=== PATIENT | female | born 1950 | race Caucasian/White ===

== ENCOUNTER 2018-11-09 20:10 | Inpatient (IN) | payer MEDICARE ==
[~2018-11-09] VITALS: Ht 162.6 cm; Wt 51.9 kg
[2018-11-09 21:30] LABS: BASOPHILS # (AUTO) 0.1 (0.0-0.1); BASOPHILS % 0.3 % (0.0-1.0); EOSINOPHILS # (AUTO) 0.2 (0.0-0.4); EOSINOPHILS % 0.7 % (0.0-6.0); HEMATOCRIT 32.2 % (34.2-44.1); HEMOGLOBIN 11.2 g/dL (12.0-16.0); LYMPHOCYTES # (AUTO) 1.9 (1.0-3.2); LYMPHOCYTES % 8.5 % (18.0-39.1); MEAN CORPUSCULAR HEMOGLOBIN 32.3 pg (28-32); MEAN CORPUSCULAR HGB CONC 34.8 g/dL (31-35); MEAN CORPUSCULAR VOLUME 92.8 fL (81-99); MONOCYTES # (AUTO) 2.7 (0.2-0.8); MONOCYTES % 12.1 % (4.4-11.3); NEUTROPHILS # (AUTO) 16.8 (2.1-6.9); NEUTROPHILS % 76.9 % (38.7-80.0); PLATELET COUNT 272 x10e3/uL (140-360); RED BLOOD COUNT 3.47 x10e6/uL (3.6-5.1); RED CELL DISTRIBUTION WIDTH 12.7 % (11.7-14.4)
[2018-11-09 21:41] LABS: BACTERIA,URINE FEW /HPF; BILIRUBIN,URINE NEGATIVE (NEGATIVE); CLARITY,URINE CLEAR (CLEAR); COLOR,URINE YELLOW (YELLOW); KETONES,URINE NEGATIVE (NEGATIVE); LEUKOCYTE ESTERASE ,URINE NEGATIVE (NEGATIVE); NITRITE,URINE NEGATIVE (NEGATIVE); PROTEIN,URINE DIPSTICK NEGATIVE (NEGATIVE); URINE UROBILINOGEN 0.2 mg/dL (0.2 - 1); WBC,URINE (MAN) 0-5 /HPF (0-5)
[2018-11-09 21:42] LABS: EPITHELIAL CELLS,URINE FEW /LPF
[2018-11-09 21:49] LABS: ALANINE AMINOTRANSFERASE 8 IU/L (0-55); ALBUMIN 3.3 g/dL (3.5-5.0); ALBUMIN/GLOBULIN RATIO 0.8 (0.8-2.0); ALKALINE PHOSPHATASE 120 IU/L (40-150); AMYLASE 23 U/L (25-125); BLOOD UREA NITROGEN 18 mg/dL (7-26); BUN/CREATININE RATIO 21 (6-25); CALCIUM 9.1 mg/dL (8.4-10.2); CARBON DIOXIDE 20 mmol/L (22-29); CHLORIDE 96 mmol/L (98-107); CREATININE, SERUM 0.86 mg/dL (0.57-1.11); EST GLOMERULAR FILTRATION RATE > 60 ML/MIN (60-); GLUCOSE 154 mg/dL (74-118); LIPASE 11 U/L (8-78); SODIUM 130 mmol/L (136-145)
--- NOTE | 2018-11-09 21:50 | Diagnostic Imaging Report ---
EXAM: XR CHEST 1 VIEW DATE: 11/09/2018 9:01 PM INDICATION: Cough COMPARISON: None FINDINGS: Lines and Tubes: None Heart and Mediastinum: No acute cardiomediastinal findings. Lungs and Pleura: Patchy opacity left lung base. Possible underlying emphysematous change. Bones and Soft Tissues: No acute findings. IMPRESSION: 1. Left basilar pneumonia. Signed by: Dr. Anant Shetty MD on 11/09/2018 9:47 PM
[2018-11-09] MEDS ORDERED: SODIUM CHLORIDE 0.9% 50ML 50 ML ONE (23:29)
[2018-11-09] MEDS ORDERED: IOPAMIDOL 370 MG/ML 200 ML INFUS..BTL INJ ONE (23:29)
--- NOTE | 2018-11-10 00:15 | Diagnostic Imaging Report ---
EXAM: CT Abdomen and Pelvis WITH contrast INDICATION: Pain COMPARISON: None. TECHNIQUE: Abdomen and Pelvis was scanned utilizing a multidetector helical scanner after administration of IV contrast. Coronal and sagittal reformations were obtained. IV CONTRAST: 100 mL Isovue-370 COMPLICATIONS: None RADIATION DOSE: Total DLP:245 mGy*cm Estimated effective dose: (DLP x 0.015 x size factor) mSv CTDIvol has been reviewed. It is below the limits set by the Radiation Protocol Committee (RPC). Appropriate CT dose reduction techniques were utilized. FINDINGS: Abdomen: Lung Bases: Patchy opacities left lower lobe. Solid Organs: Cholecystectomy clips. [place] phenomenon. 12 mm hypodensity right hepatic lobe image 9. To small to characterize hypodensity right kidney. Stranding present about the left kidney with several To small to characterize hypodensities. Enhancement of kidneys normal. Pancreatic atrophy, coarse calcifications, and ductal dilatation present. Upper GI Tract: Small hiatal hernia. No small bowel obstructive changes. Nonspecific distal fluid-filled loops of small bowel. Vascularity: Advanced aortic vascular calcifications with no aneurysm. Small peripherally calcified aneurysm 13 mm right upper quadrant image 16. Lymph Nodes: No definite adenopathy. Other: Scattered vascular calcifications. Pelvis: Bladder: Unremarkable. Other: Fluid-filled loops of small bowel in the pelvis. Uterus not visualized. Colon: No acute colonic findings. Visualized portions of appendix unremarkable. Bones: No acute findings. IMPRESSION: 1. Left perinephric stranding can be seen in the setting of recently passed stone or hilar nephritis. The left ureter is not dilated. No definite ureteral tract was. Several adjacent calcifications appear vascular. 2. Fluid-filled loops of small bowel, nonspecific. Findings can be seen in the setting of gastritis. 3. Patchy nodular airspace opacities left lung base, no comparisons available. Pneumonia possible. Given nodularity, three-month CT follow-up recommended to document resolution. 4. Sequela of chronic pancreatitis. Clinical/laboratory correlation recommended as superimposed acute pancreatitis would be difficult to exclude. Signed by: Dr. Anant Shetty MD on 11/10/2018 12:11 AM
[2018-11-10] MEDS ORDERED: SODIUM CHLORIDE 0.9% 1000ML 1,000 ML IV SCH (00:54)
[2018-11-10] MEDS ORDERED: PROMETHAZINE/CODEINE 5 ML UDC PO PRN (01:00)
[2018-11-10] MEDS ORDERED: CEFTRIAXONE SOD 1 GM VIAL ONE (01:07)
[2018-11-10] MEDS: CEFTRIAXONE SOD 1 GRAM/0.9% SOD CHL 50ML BAG IV SCH (01:11)
[2018-11-10] MEDS: MORPHINE SULFATE INJ 4 MG/ML INJ 1ML IV PRN ×4 (01:25→23:58)
[2018-11-10] MEDS: ONDANSETRON HCL INJ 2MG/ML 2ML 2 MG/ML VIAL IV PRN ×4 (01:25→23:58)
[2018-11-10] MEDS ORDERED: MORPHINE SULFATE INJ 4 MG/ML INJ 1ML ONE (01:25)
[2018-11-10] MEDS: HYDROCODONE/CHLORPHENIRAMINE 5 ML LIQCR PO PRN (01:25)
[2018-11-10] MEDS ORDERED: LEVOFLOXACIN 500MG/D5W 100ML 100 ML IV ONE (01:31)
[2018-11-10] MEDS: LEVOFLOXACIN 750MG/D5W 150ML IV SCH (01:33)
[2018-11-10] MEDS: NICOTINE 21 MG/EA PATCH TOP SCH ×2 (01:33→10:43)
[2018-11-10] MEDS ORDERED: no home meds (01:34)
[2018-11-10 05:31] LABS: CREATINE KINASE MB 0.7 ng/mL (0-5.0)
--- NOTE | 2018-11-10 06:48 | NUR ---
RECEIVED REPORT FROM OFF GOING NURSE. PATIENT IN ROOM IN HOSPITAL BED. AWAKE AND ALERT. NO S/S OFA CUTE DISTRESS. IV FLUIDS ORDERED. CONNECTED TO BEDSIDE MONITOR. PENDING ROOM ASSIGNMENT FOR ADMISSION. BED DOWN CALL LIGHT IN REACH, WILL CONTINUE TO MOINTOR.
[2018-11-10] MEDS: METHYLPREDNISOLONE SOD SUCC 40 MG/ML VIAL 1ML IV SCH ×3 (06:50→21:22)
--- OUTSIDE RECORDS SUMMARY | 2018-11-10 07:00 | XMS REPORT ---
Author Author [facility] Address Unknown Phone Unavailable Care Team Providers Care Oriental Medicine Practitioner Name Role Phone Tran GASPAR Unavailable Unavailable Problems This patient has no known problems. Allergies, Adverse Reactions, Alerts This patient has no known allergies or adverse reactions. Medications This patient has no known medications. Results Test Description Test Time Test Comments Text Results Atomic Results Result Comments CT ABDOMEN/PELVIS W 2018-11-09 23:59:00 [facility] [address] [address] Patient Name: ANGELA DE LEON MR #: [id number] : 1950 Age/Sex: 68/F Req #: [id number] Adm Physician: Ordered by: HILARIA PEARL RIG MECHANIC Report #: [id number] Location: ER Room/Bed: Procedure: [id number] CT/CT ABDOMEN/PELVIS W Exam Date: 11/10/18 Exam Time: 2346 REPORT STATUS: Signed EXAM: CT Abdomen and Pelvis WITH contrast INDICATION: Pain COMPARISON: None. TECHNIQUE: Abdomen and Pelvis was scanned utilizing a multidetector helical scanner after administration of IV contrast. Coronal and sagittal reformations were obtained. IV CONTRAST: 100 mL Isovue-370 COMPLICATIONS: None RADIATION DOSE: Total DLP:245 mGy*cm Estimated effective dose: (DLP x 0.015 x size factor) mSv CTDIvol has been reviewed. It is below the limits set by the Radiation Protocol Committee (RPC). Appropriate CT dose reduction techniques were utilized. FINDINGS: Abdomen: Lung Bases: Patchy opacities left lower lobe. Solid Organs: Cholecystectomy clips. [place] phenomenon. 12 mm hypodensity right hepatic lobe image 9. To small to characterize hypodensity right kidney. Stranding present about the left kidney with several To small to characterize hypodensities. Enhancement of kidneys normal. Pancreatic atrophy, coarse calcifications, and ductal dilatation present. Upper GI Tract: Small hiatal hernia. No small bowel obstructive changes. Nonspecific distal fluid-filled loops of small bowel. Vascularity: Advanced aortic vascular calcifications with no aneurysm. Small peripherally calcified aneurysm 13 mm right upper quadrant image 16. Lymph Nodes: No definite adenopathy. Other: Scattered vascular calcifications. Pelvis: Bladder: Unremarkable. Other: Fluid-filled loops of small bowel in the pelvis. Uterus not visualized. Colon: No acute colonic findings. Visualized portions of appendix unremarkable. Bones: No acute findings. IMPRESSION: 1. Left perinephric stranding can be seen in the setting of recently passed stone or hilar nephritis. The left ureter is not dilated. No definite ureteral tract was. Several adjacent calcifications appear vascular. 2. Fluid-filled loops of small bowel, nonspecific. Findings can be seen in the setting of gastritis. 3. Patchy nodular airspace opacities left lung base, no comparisons available. Pneumonia possible. Given nodularity, three-month CT follow-up recommended to document resolution. 4. Sequela of chronic pancreatitis. Clinical/laboratory correlation recommended as superimposed acute pancreatitis would be difficult to exclude. Signed by: Dr. Anant Shetty MD on 11/10/2018 12:11 AM Dictated By: ANANT SHETTY MD Transcribed By: DAPHNEY on 11/10/1810 COPY TO: HILARIA PEARL NP CHEST SINGLE (NOT PORTABLE) 2018-11-09 21:47:00 [address] [address] Patient Name: ANGELA DE LEON MR #: [id number] : 1950 Age/Sex: 68/F Req #: [id number] Adm Physician: Ordered by: HILARIA PEARL NP Report #: [id number] Location: Room/Bed: Procedure: [id number] DX/CHEST SINGLE (NOT PORTABLE) Exam Date: 11/09/18 Exam Time: 2124 REPORT STATUS: Signed EXAM: XR CHEST 1 VIEW DATE: 11/09/2018 9:01 PM INDICATION: Cough COMPARISON: None FINDINGS: Lines and Tubes: None Heart and Mediastinum: No acute cardiomediastinal findings. Lungs and Pleura: Patchy opacity left lung base. Possible underlying emphysematous change. Bones and Soft Tissues: No acute findings. IMPRESSION: 1. Left basilar pneumonia. Signed by: Dr. Anant Shetty MD on 11/09/2018 9:47 PM Dictated By: ANANT SHETTY MD 46 Transcribed By: DAPHNEY on 11/09/182146 COPY TO: HILARIA PEARL RIG MECHANIC
[2018-11-10] MEDS ORDERED: ACETAMINOPHEN 325 MG TAB PO PRN (07:30)
[2018-11-10] MEDS: ALBUTEROL SULF 0.083% NEB SOLN 3 ML NEB NEB SCH ×4 (11:30→23:00)
[2018-11-10] MEDS: IPRATROPIUM BROMIDE 0.02% 2.5 ML NEB NEB SCH ×2 (11:30→20:15)
[2018-11-10] MEDS: PIPER-TAZ 3.375 GM 50 ML IV SCH ×2 (12:25→21:22)
--- NOTE | 2018-11-10 12:41 | Diagnostic Imaging Report ---
EXAMINATION: CT scan of the chest without contrast. TECHNIQUE: Spiral CT images of the chest were performed from the lung apices to the level of the adrenal glands without IV or oral contrast material. Coronal and sagittal reformatted images were obtained. Appropriate low-dose reduction technique was utilized. DLP: 231.44 mGy-cm COMPARISON: Chest x-ray dated 11/09/[address] dated 11/09/2018. CLINICAL HISTORY: Pneumonia DISCUSSION: LINES/TUBES: None. LUNGS AND AIRWAYS: Focal apical nodular opacities likely secondary to scarring. Left lower lobe anterior segment opacities as well as superior segment right lower lobe opacities likely secondary to pneumonia. Tree-in-bud opacities in the right middle and upper lobe also likely infectious. The airways are normal, without endobronchial lesions. PLEURA: No pneumothorax or pleural effusions. HEART AND MEDIASTINUM: The thyroid gland is normal. The heart and pericardium are within normal limits. Aortic and coronary calcification. LYMPH NODES: There is no mediastinal, hilar or axillary lymphadenopathy. ABDOMEN: Please see the full report associated with abdominal and pelvic CT dated 11/09/2018. BONES AND SOFT TISSUES: Nondescript lytic lucency of the left side of the T8 vertebral body. Degenerative changes of the spine. IMPRESSION: 1. Multifocal airspace opacities compatible with multifocal pneumonia. 2. Follow-up CT scan without contrast in 4-6 weeks following therapy is recommended to ascertain clearing. 3. Nondescript lytic lucency of T8. Consider radionuclide bone scan for further evaluation. Signed by: Dr. Roosevelt Locke DO on 11/10/2018 12:38 PM
--- NOTE | 2018-11-10 13:19 | Consultation ---
DATE OF CONSULTATION: November 10, 2018 PULMONARY CONSULTATION REASON FOR CONSULTATION: Shortness of breath and cough. HPI: Ms. Coyne is a 71-year-old female who presented with shortness of breath and coughing going on for last 3 days. She reports she has been a smoker for 55+ years of 1 pack per day. She denies any complaints of chest pain, nausea, or vomiting. She reports that the symptoms started 2 weeks ago and progressively got worse. She uses inhalers at home. She had not seen her primary care doctor in 3 months. On presentation, she was complaining of right-sided abdominal pain and distention. Lower cuts of CT of the abdomen showing some nodularity on the left lung base. CT chest is pending. REVIEW OF SYSTEMS GENERAL: Denies any fever or chills. HEENT: Denies any head trauma. ENT: Denies any earache. CV: Denies any chest pain. RESPIRATORY: Shortness of breath and cough. GI: Denies any nausea or vomiting. MUSCULOSKELETAL: Denies any arthralgias or myalgias. NEURO: Denies any focal weakness. The rest of the review of systems are negative except as in HPI. PAST MEDICAL HISTORY: Patient not very clear about past medical history. However, saying that the patient has high blood pressure. FAMILY AND SOCIAL HISTORY: She has been a smoker since she was 14-15 years old, almost 55-pack year smoking history. She does not know anything about her home meds. She does not drink. PHYSICAL EXAMINATION VITAL SIGNS: Temperature 99.1, pulse of 76, blood pressure 121/59, T-max 100.8. HEENT: Head is atraumatic and normocephalic. NECK: Supple. CHEST: Markedly reduced air entry. Crackles bilaterally at the bases. HEART: S1 and S2 audible. ABDOMEN: Soft and nontender. There is a mild tender abdomen. It is soft but there is mild tenderness on both flanks. EXTREMITIES: No pedal edema. NEUROLOGIC: Awake and alert. LABS: CT scan of the abdomen showing left perinephric stranding. I reviewed the images. The lower cuts are showing possibility of nodule and cavity in the left lung base. White count of 21,000, hemoglobin 11.2, and platelets 272,000. Chemistry is within normal limits. Chemistry: Sodium 130, potassium 96, bicarb 20, anion gap is 18. Influenza has been negative. ASSESSMENT AND PLAN: Ms. Coyne is a 68-year-old female. She presented with cough and abdominal pain showing possibility of pyelonephritis and pneumonia in the left lung base. CURRENT PROBLEMS 1. Left-sided pneumonia: Further evaluation is with CT of the chest, which is pending. In the meantime, agree with continuing the patient on Levaquin. 2. High likelihood of COPD: Patient is a smoker. Continue the patient on Solu-Medrol and nebulizer treatment. 3. Further pulmonary recommendations after reviewing the CT of chest. 4. Mild acidosis: Will check lactic acid. Recheck labs. Patient has received IV fluids in the emergency room. 5. I will add Zosyn along with Levaquin for broader gram-negative coverage. Job#: [id number] GLORIA
[2018-11-10 13:58] LABS: CREATINE KINASE MB 0.9 ng/mL (0-5.0)
[2018-11-10 15:20] VITALS: BP 119/60
--- NOTE | 2018-11-10 15:20 | NUR ---
PATIENT RECEIVED FROM ER PER STRETCHER. ALERT AND VERBALLY RESPONSIVE, SKIN WARM AND DRY TO TOUCH, RESPIRATION EVEN AND UNLABORED, ABDOMEN SOFT AND NON DISTENDED. ABLE TO AMBULATE TO THE RESTROOM. C/O GENERALIZED PAIN, PAIN MEDICATION GIVEN ORDERED. NO EDEMA NOTED TO LOWER EXTREMITIES. PATIENT ORIENTED TO SURROUNDINGS. BED IN LOWER POSITION, CALL LIGHT AT REACH. INSTRUCTED TO CALL FOR ASSISTANCE NEEDED. DAUGHTER AT BED SIDE.
[2018-11-10 15:58] VITALS: BP 119/60
[2018-11-10 19:20] VITALS: BP 100/68
--- NOTE | 2018-11-10 20:36 | History and Physical ---
PRIMARY CARE PHYSICIAN: Unassigned. CHIEF COMPLAINT: Abdominal pain, shortness of breath, cough for the past week. HISTORY: This patient is a 68-year-old female with medical history of chronic pancreatitis, COPD, and hypertension, came in with right lower quadrant and right mid quadrant pain after a significant amount of cough. Patient does have chronic pancreatitis at baseline. She is a smoker 1 pack per day of tobacco for many years. The patient has increasing productive cough. She also has a low-grade fever. She does have COPD with increasing wheezing. The patient took all her medications at home without any relief. The patient came to the hospital for further evaluation. PAST MEDICAL HISTORY: COPD, chronic pancreatitis, hypertension, smoker, progressive weight loss. PAST SURGICAL HISTORY: Cholecystectomy and complete hysterectomy. SOCIAL HISTORY: Patient is a smoker of 1 pack per day for many, many years. She does not drink alcohol. No recreational drug use. She lives at home with her family. ALLERGIES: NO KNOWN ALLERGIES. HOME MEDICATIONS: List reviewed. REVIEW OF SYSTEMS: Increasing cough, increasing chest pain with cough, productive cough, wheezing, and shortness of breath with rest and exertion. PHYSICAL EXAMINATION: VITAL SIGNS: Temperature is 99, blood pressure 115/81, pulse rate is 60, respirations 22. GENERAL: The patient is awake. She is not in any distress. HEENT: Normocephalic, atraumatic. Sclerae anicteric. NECK: Supple grossly. PULMONARY: Bilateral coarseness and diminished breath sounds at bases, greater on the left compared to the right. Positive for rhonchi and coarseness. CARDIOVASCULAR: Regular rate and rhythm. ABDOMEN: Soft. There is tenderness in the right mid quadrant area, but no guarding, no rebound tenderness. EXTREMITIES: No gross cyanosis or edema. NEUROLOGIC: No gross focal deficit. LABORATORY: Sodium is 130, potassium 4, chloride 96, bicarb 20, BUN 18, creatinine 0.8, glucose 154. WBC is 21.8, hemoglobin 11.2, hematocrit 32.2, platelets is 272,000. Chest x-ray, possible left lower lobe pneumonia. IMPRESSION: 1. Sepsis without shock on admission. 2. Left lower lobe pneumonia. 3. Acute exacerbation of chronic obstructive pulmonary disease. 4. Acute hypoxia. 5. Abdominal pain secondary to cough and infection. PLAN: Continue with antibiotics. Nebulizer treatment. Solu-Medrol, steroids. Antitussive. Blood culture. Home medications resumed. Consultation with Dr. Laury Santana. Will obtain a CT of the chest without IV contrast. Will monitor patient closely at this time. Job#: [id number]
[2018-11-10] MEDS ORDERED: SODIUM CHLORIDE 0.9% 250ML 250 ML ONE (21:08)
[2018-11-10 22:06] LABS: CREATINE KINASE MB 1.4 ng/mL (0-5.0)
[2018-11-10 22:37] VITALS: BP 100/68
[2018-11-11] VITALS (7 sets, daily range): BP systolic 99–118; BP diastolic 52–74
[2018-11-11] MEDS: CEFTRIAXONE SOD 1 GRAM/0.9% SOD CHL 50ML BAG IV SCH
[2018-11-11] MEDS: IPRATROPIUM BROMIDE 0.02% 2.5 ML NEB NEB SCH ×5 (01:00→23:30)
[2018-11-11] MEDS: LEVOFLOXACIN 750MG/D5W 150ML IV SCH (01:15)
[2018-11-11] MEDS: ALBUTEROL SULF 0.083% NEB SOLN 3 ML NEB NEB SCH ×6 (03:00→23:30)
[2018-11-11] MEDS: METHYLPREDNISOLONE SOD SUCC 40 MG/ML VIAL 1ML IV SCH (05:22)
[2018-11-11] MEDS: PIPER-TAZ 3.375 GM 50 ML IV SCH ×3 (05:22→21:11)
[2018-11-11] MEDS: HYDROCODONE/CHLORPHENIRAMINE 5 ML LIQCR PO PRN (05:36)
--- NOTE | 2018-11-11 06:17 | Diagnostic Imaging Report ---
EXAM: XR CHEST 1 VIEW DATE: 11/11/2018 5:00 AM INDICATION: Pneumonia COMPARISON: 11/10/2018 CT FINDINGS: Lines and Tubes: None Heart and Mediastinum: No acute cardiomediastinal findings. Lungs and Pleura: Ill-defined opacities left lung base, asymmetric to the left, similar to recent CT. Bones and Soft Tissues: No acute findings. IMPRESSION: 1. No significant change. Signed by: Dr. Anant Shetty MD on 11/11/2018 6:14 AM
[2018-11-11 06:28] LABS: BASOPHILS % 0.2 % (0.0-1.0); HEMATOCRIT 29.2 % (34.2-44.1); HEMOGLOBIN 9.7 g/dL (12.0-16.0); LYMPHOCYTES # (AUTO) 1.3 (1.0-3.2); LYMPHOCYTES % 8.2 % (18.0-39.1); MEAN CORPUSCULAR HEMOGLOBIN 31.6 pg (28-32); MEAN CORPUSCULAR HGB CONC 33.2 g/dL (31-35); MEAN CORPUSCULAR VOLUME 95.1 fL (81-99); MONOCYTES # (AUTO) 1.1 (0.2-0.8); MONOCYTES % 7.1 % (4.4-11.3); NEUTROPHILS # (AUTO) 12.6 (2.1-6.9); NEUTROPHILS % 82.5 % (38.7-80.0); PLATELET COUNT 239 x10e3/uL (140-360); RED BLOOD COUNT 3.07 x10e6/uL (3.6-5.1); RED CELL DISTRIBUTION WIDTH 12.6 % (11.7-14.4)
[2018-11-11 06:47] LABS: ANION GAP 15.8 mmol/L (8-16); CALCIUM 8.9 mg/dL (8.4-10.2); CREATININE, SERUM 1.11 mg/dL (0.57-1.11); POTASSIUM 4.8 mmol/L (3.5-5.1)
--- NOTE | 2018-11-11 07:54 | NUR ---
called dr wells re;high glucose,left message
[2018-11-11] MEDS: MORPHINE SULFATE INJ 4 MG/ML INJ 1ML IV PRN ×3 (08:25→19:35)
[2018-11-11] MEDS: NICOTINE 21 MG/EA PATCH TOP SCH (08:30)
--- NOTE | 2018-11-11 08:30 | NUR ---
dr wells here informed him of high glucose,orders written
[2018-11-11] MEDS ORDERED: DEXTROSE 50% SYRINGE 50 ML IV PRN (09:15)
[2018-11-11] MEDS ORDERED: AZITHROMYCIN 500MG/NS 250 ML 250 ML IV ONE (09:45)
[2018-11-11] MEDS: INSULIN LISPRO 100 UNIT/1 ML 3ML VIAL SQ SCH ×4 (10:17→20:17)
--- NOTE | 2018-11-11 12:00 | NUR ---
PT GLUCOSE 426 INSULIN GIVEN ORDERED,DR ALL ADAMSON,NO NEW ORDERS
[2018-11-11] MEDS: ENOXAPARIN SOD INJ 40 MG/0.4 ML SYR SC SCH (16:39)
--- NOTE | 2018-11-11 17:41 | NUR ---
PT IN BED RESTING,NO DISTRESS NOTED,DENIES PAIN
--- NOTE | 2018-11-11 19:00 | NUR ---
Patient met on the station informing nurse she was about to walk with her granddaughter downstairs. Patient alert and oriented x3. No distress or discomfort noted. Patient has frequent pain to RLQ abdomen and will medicate accordingly. Nicotine patch to right deltoid. Informed pt she can't smoke while nicotine patch is on. Will continue to monitor.
[2018-11-11] MEDS ORDERED: METHYLPREDNISOLONE SOD SUCC 40 MG/ML VIAL 1ML IV SCH (21:00)
[2018-11-11] MEDS: TRAZODONE HCL 50 MG TAB PO PRN (22:40)
[2018-11-12] VITALS (7 sets, daily range): BP systolic 104–116; BP diastolic 53–58
[2018-11-12] MEDS: ALBUTEROL SULF 0.083% NEB SOLN 3 ML NEB NEB SCH ×5 (03:00→23:04)
[2018-11-12 05:37] LABS: BASOPHILS % 0.1 % (0.0-1.0); HEMATOCRIT 27.5 % (34.2-44.1); HEMOGLOBIN 9.1 g/dL (12.0-16.0); LYMPHOCYTES # (AUTO) 1.2 (1.0-3.2); LYMPHOCYTES % 6.2 % (18.0-39.1); MEAN CORPUSCULAR HEMOGLOBIN 31.8 pg (28-32); MEAN CORPUSCULAR HGB CONC 33.1 g/dL (31-35); MEAN CORPUSCULAR VOLUME 96.2 fL (81-99); MONOCYTES # (AUTO) 0.7 (0.2-0.8); MONOCYTES % 3.8 % (4.4-11.3); NEUTROPHILS # (AUTO) 16.1 (2.1-6.9); NEUTROPHILS % 86.8 % (38.7-80.0); PLATELET COUNT 281 x10e3/uL (140-360); RED BLOOD COUNT 2.86 x10e6/uL (3.6-5.1); RED CELL DISTRIBUTION WIDTH 12.7 % (11.7-14.4)
[2018-11-12] MEDS: PIPER-TAZ 3.375 GM 50 ML IV SCH ×2 (06:29→16:09)
[2018-11-12] MEDS: MORPHINE SULFATE INJ 4 MG/ML INJ 1ML IV PRN ×3 (06:35→22:20)
[2018-11-12 06:55] LABS: ANION GAP 15.8 mmol/L (8-16); CALCIUM 8.9 mg/dL (8.4-10.2); CREATININE, SERUM 1.1 mg/dL (0.57-1.11); POTASSIUM 4.8 mmol/L (3.5-5.1)
[2018-11-12] MEDS: IPRATROPIUM BROMIDE 0.02% 2.5 ML NEB NEB SCH ×3 (07:00→19:00)
--- NOTE | 2018-11-12 07:30 | NUR ---
PT UP IN BED AWAKE,PAIN LEVL 3,NO DISTRESS NOTED
[2018-11-12] MEDS: INSULIN LISPRO 100 UNIT/1 ML 3ML VIAL SQ SCH ×4 (08:30→20:12)
[2018-11-12 09:05] LABS: LYMPHOCYTES % (MANUAL) 14 % (19-48); MONOCYTES % (MANUAL) 3 % (3.4-9.0); NEUTROPHILS % (MANUAL) 81 % (40-74)
[2018-11-12 09:06] LABS: BLAST CELLS % MANUAL 1
[2018-11-12 09:08] LABS: ANISOCYTOSIS SLIGHT; HYPOCHROMASIA SLIGHT; PLATELET ESTIMATE ADEQUATE; PLATELET MORPHOLOGY COMMENT NORMAL; RBC MORPHOLOGY COMMENT NORMAL
[2018-11-12] MEDS: AZITHROMYCIN 500MG/NS 250 ML 250 ML IV SCH (09:10)
[2018-11-12] MEDS: NICOTINE 21 MG/EA PATCH TOP SCH (09:10)
[2018-11-12] MEDS: METHYLPREDNISOLONE SOD SUCC 40 MG/ML VIAL 1ML IV SCH ×2 (09:10→20:11)
--- NOTE | 2018-11-12 13:00 | NUR ---
PT UP IN BED SLEEPING NO S/S DISCOMFPRT
[2018-11-12] MEDS: ACETYLCYSTEINE 20% INHAL SOLN 30 ML VIAL INH SCH ×2 (14:28→23:04)
--- NOTE | 2018-11-12 16:30 | NUR ---
IV SITE PAINFUL DCD .RESTARTED TO LT WRIST 20 GAUGE,TOLERATED WELL
[2018-11-12] MEDS: ENOXAPARIN SOD INJ 40 MG/0.4 ML SYR SC SCH (17:00)
--- NOTE | 2018-11-12 19:00 | NUR ---
Patient visited in room during nursing rounds. Patient alert and oriented x3. No distress or discomfort noted. Patient has frequent pain to RLQ abdomen and will medicate accordingly. Nicotine patch to right deltoid. Call pickett within reach. Will continue to monitor.
[2018-11-13] VITALS (8 sets, daily range): BP systolic 95–120; BP diastolic 53–68
[2018-11-13] MEDS: PIPER-TAZ 3.375 GM 50 ML IV SCH ×4 (00:21→23:01)
[2018-11-13] MEDS: TRAZODONE HCL 50 MG TAB PO PRN ×2 (00:24→21:59)
[2018-11-13] MEDS: IPRATROPIUM BROMIDE 0.02% 2.5 ML NEB NEB SCH ×4 (01:00→20:00)
[2018-11-13] MEDS: ALBUTEROL SULF 0.083% NEB SOLN 3 ML NEB NEB SCH ×5 (03:00→20:00)
[2018-11-13 06:17] LABS: BASOPHILS % 0.1 % (0.0-1.0); HEMATOCRIT 27.2 % (34.2-44.1); LYMPHOCYTES # (AUTO) 1.3 (1.0-3.2); LYMPHOCYTES % 9.1 % (18.0-39.1); MEAN CORPUSCULAR HEMOGLOBIN 31.8 pg (28-32); MEAN CORPUSCULAR HGB CONC 33.1 g/dL (31-35); MEAN CORPUSCULAR VOLUME 96.1 fL (81-99); MONOCYTES # (AUTO) 0.8 (0.2-0.8); MONOCYTES % 5.6 % (4.4-11.3); NEUTROPHILS # (AUTO) 11.3 (2.1-6.9); NEUTROPHILS % 82.3 % (38.7-80.0); PLATELET COUNT 271 x10e3/uL (140-360); RED BLOOD COUNT 2.83 x10e6/uL (3.6-5.1); RED CELL DISTRIBUTION WIDTH 12.8 % (11.7-14.4)
[2018-11-13 06:35] LABS: ANION GAP 13.1 mmol/L (8-16); CALCIUM 8.5 mg/dL (8.4-10.2); CREATININE, SERUM 0.99 mg/dL (0.57-1.11)
[2018-11-13 06:39] LABS: POTASSIUM 5.1 mmol/L (3.5-5.1)
[2018-11-13] MEDS: ACETYLCYSTEINE 20% INHAL SOLN 30 ML VIAL INH SCH ×3 (07:05→22:00)
[2018-11-13 07:22] LABS: HYPOCHROMASIA SLIGHT; LYMPHOCYTES % (MANUAL) 9 % (19-48); MONOCYTES % (MANUAL) 7 % (3.4-9.0); NEUTROPHILS % (MANUAL) 84 % (40-74); PLATELET ESTIMATE ADEQUATE; PLATELET MORPHOLOGY COMMENT NORMAL; RBC MORPHOLOGY COMMENT NORMAL; TARGET CELLS RN
[2018-11-13] MEDS: INSULIN LISPRO 100 UNIT/1 ML 3ML VIAL SQ SCH ×4 (07:30→21:00)
[2018-11-13] MEDS ORDERED: MELOXICAM 7.5 MG TAB PO PRN (09:00)
[2018-11-13] MEDS: NICOTINE 21 MG/EA PATCH TOP SCH (09:00)
[2018-11-13] MEDS ORDERED: OMEPRAZOLE 20 MG CAP PO SCH (09:00)
[2018-11-13] MEDS ORDERED: BENZONATATE 100 MG CAP PO PRN (09:00)
[2018-11-13] MEDS: AZITHROMYCIN 500MG/NS 250 ML 250 ML IV SCH (09:50)
[2018-11-13] MEDS: BENZONATATE 100 MG CAP PO SCH ×3 (09:51→20:56)
[2018-11-13] MEDS: ACETAMINOPHEN/CODEINE 300MG - 30MG TAB PO PRN ×3 (09:51→21:58)
[2018-11-13] MEDS: PANTOPRAZOLE SOD 40 MG TABEC PO SCH (09:51)
[2018-11-13] MEDS: PREDNISONE 10 MG TAB PO SCH (09:51)
[2018-11-13] MEDS ORDERED: ALBUTEROL SULF 0.083% NEB SOLN 3 ML NEB NEB SCH (12:00)
[2018-11-13] MEDS: ENOXAPARIN SOD INJ 40 MG/0.4 ML SYR SC SCH (16:14)
--- NOTE | 2018-11-13 19:28 | NUR ---
PATIENT IS IN STABLE CONDITION WITH NO S/S OF RESPIRATORY DISTRESS. NO PAIN VOICED. CALL LIGHT IS WITHIN REACH, PATIENT INSTRUCTED TO CALL FOR ASSISTANCE NEEDED. REPORT GIVEN TO ONCOMING NURSE.
[2018-11-14] VITALS: BP 109/63
[2018-11-14] MEDS: IPRATROPIUM BROMIDE 0.02% 2.5 ML NEB NEB SCH ×2 (00:32→07:50)
[2018-11-14] MEDS: ALBUTEROL SULF 0.083% NEB SOLN 3 ML NEB NEB SCH ×2 (00:32→07:50)
[2018-11-14 05:00] VITALS: BP 108/55
[2018-11-14] MEDS: ACETAMINOPHEN/CODEINE 300MG - 30MG TAB PO PRN ×2 (05:14→11:41)
[2018-11-14 05:51] LABS: BASOPHILS % 0.2 % (0.0-1.0); EOSINOPHILS % 0.1 % (0.0-6.0); HEMATOCRIT 27.8 % (34.2-44.1); HEMOGLOBIN 9.1 g/dL (12.0-16.0); LYMPHOCYTES # (AUTO) 2.8 (1.0-3.2); LYMPHOCYTES % 22.6 % (18.0-39.1); MEAN CORPUSCULAR HEMOGLOBIN 31.8 pg (28-32); MEAN CORPUSCULAR HGB CONC 32.7 g/dL (31-35); MEAN CORPUSCULAR VOLUME 97.2 fL (81-99); MONOCYTES # (AUTO) 1.2 (0.2-0.8); MONOCYTES % 10.2 % (4.4-11.3); NEUTROPHILS # (AUTO) 7.7 (2.1-6.9); NEUTROPHILS % 63.1 % (38.7-80.0); PLATELET COUNT 255 x10e3/uL (140-360); RED BLOOD COUNT 2.86 x10e6/uL (3.6-5.1); RED CELL DISTRIBUTION WIDTH 13.2 % (11.7-14.4)
[2018-11-14 06:05] LABS: % IRON SATURATION 40 % (15-50); ANION GAP 14.6 mmol/L (8-16); CALCIUM 8.3 mg/dL (8.4-10.2); IRON 95 ug/dL (50-170); POTASSIUM 4.6 mmol/L (3.5-5.1); TOTAL IRON BINDING CAPACITY 235 ug/dL (261-478); TRANSFERRIN 168 mg/dL (180-382)
[2018-11-14 06:42] LABS: FOLATE 4.8 ng/mL (7.0-15.4)
--- NOTE | 2018-11-14 07:01 | NUR ---
PATIENT RESTING IN BED- ALERT AND IS IN STABLE CONDITION WITH NO S/S OF RESPIRATORY DISTRESS. NO PAIN VOICED. CALL LIGHT IS WITHIN REACH, PATIENT INSTRUCTED TO CALL FOR ASSISTANCE NEEDED.
[2018-11-14] MEDS: INSULIN LISPRO 100 UNIT/1 ML 3ML VIAL SQ SCH ×2 (07:30→11:30)
[2018-11-14 07:45] VITALS: BP 114/63
[2018-11-14] MEDS: ACETYLCYSTEINE 20% INHAL SOLN 30 ML VIAL INH SCH (07:50)
[2018-11-14] MEDS: PIPER-TAZ 3.375 GM 50 ML IV SCH (08:48)
[2018-11-14] MEDS: BENZONATATE 100 MG CAP PO SCH (08:49)
[2018-11-14] MEDS: NICOTINE 21 MG/EA PATCH TOP SCH (08:49)
[2018-11-14] MEDS: PREDNISONE 10 MG TAB PO SCH (08:49)
[2018-11-14] MEDS: PANTOPRAZOLE SOD 40 MG TABEC PO SCH (08:49)
[2018-11-14 09:57] VITALS: BP 114/63
[2018-11-14] MEDS: AZITHROMYCIN 500MG/NS 250 ML 250 ML IV SCH (09:58)
[2018-11-14 11:49] VITALS: BP 104/56
--- NOTE | 2018-11-14 11:52 | NUR ---
Patient has discharge orders. CM met with pt to discuss dc and educated her on IMM letter. She denies any needs, and is anxious to get home. She verbalized understanding of IMM and signed. Copy to her and original placed in chart. Family at bedside.
--- NOTE | 2018-11-14 13:24 | NUR ---
CALLED AND SPOKE WITH DR. CARRIZALES REGARDING PATIENT'S DIARRHEA (WITNESSED BY OTHER RN ON THE UNIT)- DR. CARRIZALSE AWARE. NO NEW ORDERS RECEIVED.
[2018-11-14] MEDS ORDERED: MUCINEX600 MG PO (13:32)
[2018-11-14] MEDS ORDERED: TESSALON PERLE100 MG PO (13:33)
[2018-11-14] MEDS ORDERED: GLUCOTROL5 MG (13:34)
[2018-11-14] MEDS ORDERED: DOXYCYCLINE MO100 M1 PO (13:35)
[2018-11-14] MEDS ORDERED: PREDNISONE5 MG PO (13:36)
[2018-11-14] MEDS ORDERED: OMEPRAZOLE20 M1 PO (13:37)
[2018-11-14] MEDS ORDERED: PROAIR HFA INH8.5 GM (13:38)
--- NOTE | 2018-11-14 14:19 | NUR ---
PATIENT DISCHARGE HOME- PATIENT OFF THE UNIT AT 1407 PER WHEELCHAIR ACCOMPANIED BY RN TO THE FRONT LOBBY. PATIENT IN STABLE CONDITION WITH NO S/S OF RESPIRATORY DISTRESS. NO PAIN VOICED. IV REMOVED AT 1334 WITH TIP INTACT. DISCHARGE TEACHING, INSTRUCTIONS, AND MEDICATIONS GIVEN TO THE PATIENT. ALL PERSONAL ITEMS WERE TAKEN WITH THE PATIENT AND HER GRANDDAUGHTER.
--- NOTE | 2018-11-15 02:37 | Discharge Summary ---
CHIEF MARKETING OFFICER: Dr. Nolan Carty. FINAL DIAGNOSES 1. Acute exacerbation of chronic obstructive pulmonary disease. 2. Status post sepsis. 3. Multi-lobar pneumonia. 4. Smoker. SUMMARY: Patient is a 68-year-old female smoker who came in with [id number] exacerbation of her COPD with acute hypoxia. CT scan also showed multi-lobar pneumonia. Patient also was septic when she came into the hospital with low blood pressure and fever. Patient with leukocytosis at 21,800. There was no shock, however. The patient was given antibiotics. She is doing much better now. She is stable. Her lung examination has significantly subsided. The patient does have chronic pain. She did see pain management previously. Patient is stable, discharged home today. DISCHARGE MEDICATIONS 1. Doxycycline mononitrate 100 mg twice a day for 15 days. 2. Prednisone 5 mg daily for 10 days. 3. Mobic 7.5 mg b.i.d. for pain. 4. Omeprazole 20 mg daily. 5. Nebulizer DuoNeb 1 nebulizer q.4h. p.r.n. for cough. 6. Tessalon Perles 100 mg q.4h. p.r.n. for cough. 7. Glucotrol XL 5 mg daily. 8. Mucinex 600 mg b.i.d. 9. ProAir 2 puffs b.i.d. p.r.n. q.4h. as needed for shortness breath. DISCHARGE CONDITION: The patient is otherwise stable, discharged to home. FOLLOWUP: Advised the patient to follow up with Dr. Nolan Carty and PCP within a week. Job#: [id number] RTLaura
== END 2018-11-14 14:25 | disposition home or self-care (01) | DRG 871 ==
LOC: ER 20:10 → ERHOLD 11-10 06:57 → MED/SURG3 11-10 14:57
PROVIDERS: ADMIT Internal Medicine; ATTEND Internal Medicine
DX: A41.9 Sepsis, unspecified organism (principal); J18.1 Lobar pneumonia, unspecified organism; J44.0 Chronic obstructive pulmonary disease with (acute) lower respiratory infection; J44.1 Chronic obstructive pulmonary disease with (acute) exacerbation; K86.1 Other chronic pancreatitis; E87.1 Hypo-osmolality and hyponatremia; E87.2 Acidosis; K74.60 Unspecified cirrhosis of liver; F17.210 Nicotine dependence, cigarettes, uncomplicated; F10.21 Alcohol dependence, in remission; R16.0 Hepatomegaly, not elsewhere classified; D64.9 Anemia, unspecified; I10 Essential (primary) hypertension; R09.02 Hypoxemia; E11.9 Type 2 diabetes mellitus without complications; R91.8 Other nonspecific abnormal finding of lung field; Z79.84 Long term (current) use of oral hypoglycemic drugs
CPT/HCPCS: 36415; 71045; 71250; 74177; 80048; 80053; 81001; 82150; 82550; 82553; 82607; 82746; 82948; 83036; 83540; 83605; 83690; 84466; 84484; 85025; 87040; 87400; 93005; 94640; 99284; J0456; J0696; J1650; J1956; J2270; J2405; J2543; J2920; J7030; J7050; J7512; Q9967

== ENCOUNTER 2019-11-16 14:13 | Emergency (ER) | payer MEDICARE ==
[~2019-11-16] VITALS: Ht 162.6 cm; Wt 51.7 kg
[~2019-11-16 14:13] MED LIST: DOXYCYCLINE MO100 M1 PO; GLUCOTROL5 MG; MUCINEX600 MG PO; OMEPRAZOLE20 M1 PO; PREDNISONE5 MG PO; PROAIR HFA INH8.5 GM; TESSALON PERLE100 MG PO; no home meds
== END 2019-11-16 15:25 | disposition home or self-care (01) ==
LOC: ER 14:13
DX: H66.92 Otitis media, unspecified, left ear (principal)
CPT/HCPCS: 99282